=== PATIENT | female | born 1990 | race Hispanic/Latino ===

== ENCOUNTER 2017-01-29 07:28 | Observation (INO) | payer SELFPAY ==
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
[2017-01-29 08:43] LABS: BASO # 0.1 K/uL (0.0-0.2); BASO % 1.4 % (0.0-2.0); EOS # 0.1 K/uL (0.0-0.7); EOS % 1.7 % (0.0-4.0); HEMOGLOBIN 11.8 g/dL (12.0-16.0); LYMPH # 1.9 K/uL (1.0-4.3); LYMPH % 43.4 % (20.0-40.0); MEAN CORPUSCULAR HEMOGLOBIN 30.1 pg (27.0-31.0); MEAN PLATELET VOLUME 7.6 fl (7.2-11.7); MONO # 0.2 K/uL (0.0-0.8); NEUT # 2.2 K/uL (1.8-7.0); NEUT % 48.5 % (50.0-75.0); RBC 3.93 Mil/uL (3.80-5.20); RED CELL DISTRIBUTION WIDTH 13.1 % (11.5-14.5); WHITE BLOOD COUNT 4.5 K/uL (4.8-10.8)
[2017-01-29 08:52] LABS: ALB/GLOB RATIO 1.7 (1.0-2.1); ALBUMIN 4.4 g/dL (3.5-5.0); ALT/SGPT 34 U/L (9-52); AST/SGOT 30 U/L (14-36); BLOOD UREA NITROGEN 9 mg/dl (7-17); CALCIUM 8.9 mg/dL (8.4-10.2); GFR AFRICAN-AMERICAN > 60; GFR NON-AFRICAN AMERICAN > 60; SALICYLATE < 1.0 mg/dl
[2017-01-29 08:55] LABS: ACETAMINOPHEN < 10.0 ug/ml (10.0-30.0)
[2017-01-29 12:55] VITALS: RESP 18
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
[2017-01-29 19:31] LABS: SQUAMOUS EPITHIAL 12 /hpf (0-5); URINE BACTERIA OCC (<OCC); URINE BILIRUBIN NEGATIVE (NEGATIVE); URINE BLOOD NEGATIVE (NEGATIVE); URINE CLARITY CLOUDY (Clear); URINE COLOR YELLOW (YELLOW); URINE GLUCOSE (UA) NEG (Normal); URINE LEUKOCYTE ESTERASE NEG Leu/uL (Negative); URINE NITRATE NEGATIVE (NEGATIVE); URINE PROTEIN 30 mg/dL (NEGATIVE); URINE UROBILINOGEN 0.2-1.0 mg/dL (0.2-1.0)
[2017-01-29 19:35] LABS: BARBITURATES, UR NEGATIVE (NEGATIVE); BENZODIAZEPINES, UR NEGATIVE (NEGATIVE); OPIATES, UR NEGATIVE (NEGATIVE); PHENCYCLIDINE, UR NEGATIVE (NEGATIVE)
--- NOTE | 2017-01-29 21:07 | ED PDOC ---
- Laboratory Results Result Diagrams: 01/29/17 08:35 01/29/17 08:35 - ECG O2 Sat by Pulse Oximetry: 98 (RA) Pulse Ox Interpretation: Normal Medical Decision Making Medical Decision Making: Time: 1899 --Patient was signed off to provider by Dr. David Valdivia III. Pending urinalysis and medical clearance. Time: 1929 --UA: positive for cocaine use. Patient is medically cleared and heel caser notified. Pending [facility] screening. Time: 2:15 --Patient evaluated by [facility], and cleared for dc. 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 Provider Scribe Attestation: All medical record entries made by the Scribe were at my direction and personally dictated by me. I have reviewed the chart and agree that the record accurately reflects my personal performance of the history, physical exam, medical decision making, and the department course for this patient. I have also personally directed, reviewed, and agree with the discharge instructions and disposition. Disposition Doctor Will See Patient In The: Office Counseled Patient/Family Regarding: Studies Performed, Diagnosis, Need For Followup - Clinical Impression Clinical Impression: Alcohol abuse with intoxication delirium, Psychosis - POA Present On Arrival: None - Disposition Disposition: Routine/Home Disposition Time: 02:15 Condition: IMPROVED
[2017-01-29 23:42] VITALS: BP 131/98; PULSE 105; TEMP 98.1
[2017-01-30 13:43] VITALS: O2SAT 99
== END 2017-01-30 02:15 | disposition home or self-care (01) ==
LOC: H.ER 07:28 → H.EROBSV 08:19
PROVIDERS: ADMIT Emergency Medicine; ATTEND Emergency Medicine
DX: F10.121 Alcohol abuse with intoxication delirium (principal); F14.90 Cocaine use, unspecified, uncomplicated; F29 Unspecified psychosis not due to a substance or known physiological condition; Y90.7 Blood alcohol level of 200-239 mg/100 ml; Z78.1 Physical restraint status
CPT/HCPCS: 36415; 80053; 81003; 81025; 84703; 85025; 96372; 99285; G0378; G0480; J1630; J2060